=== PATIENT | female | born 1935 | race African-American/Black ===

== ENCOUNTER 2021-10-04 10:35 | Emergency (ER) | payer MEDICARE, SELFPAY ==
--- NOTE | ~2021-10-04 | CT_ITS ---
CT HEAD WITHOUT IV CONTRAST CT CERVICAL SPINE WITHOUT IV CONTRAST INDICATION: Pain. COMPARISON: None available. TECHNIQUE: Multidetector CT acquisitions of the head and cervical spine were obtained without IV contrast. Multiplanar reformats were acquired and utilized for image interpretation. This CT examination was performed using dose optimization techniques as appropriate, variously including the following: *Automated exposure control *Adjustment of mA and/or kV according to patient size (this includes techniques or standardized protocols for targeted exams where dose is matched to indication/reason for exam; i.e. 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 Atherosclerotic calcification throughout the intracranial arterial vasculature. There is no intracranial hemorrhage, hydrocephalus, extra-axial surface collection, midline shift, or other herniation pattern. Her to white matter differentiation is diffusely maintained without evidence of an evolved acute territorial infarct. The basilar cisterns are preserved. No significant soft tissue abnormality. No acute osseous abnormality. There is a retention cyst within the right maxillary sinus. The remaining paranasal sinuses and the mastoid air cells are clear. Degenerative changes involving the left TMJ. CERVICAL SPINE: Straightening the cervical lordosis. Calcified pannus adjacent to the dens. Multilevel endplate osteophytes. Mild anterior subluxation of C3 on C4 and C4 on C5 appears degenerative. There are no acute fractures and there are no acute subluxations. Multilevel hypertrophic facet arthropathy. The craniocervical junction is intact. There is no prevertebral soft tissue swelling. CT/CT head/brain wo con IMPRESSION: - No acute intracranial findings. - No acute osseous findings within the cervical spine. Multilevel cervical spondylosis.
--- NOTE | ~2021-10-04 | CT_ITS ---
CT HEAD WITHOUT IV CONTRAST CT CERVICAL SPINE WITHOUT IV CONTRAST INDICATION: Pain. COMPARISON: None available. TECHNIQUE: Multidetector CT acquisitions of the head and cervical spine were obtained without IV contrast. Multiplanar reformats were acquired and utilized for image interpretation. This CT examination was performed using dose optimization techniques as appropriate, variously including the following: *Automated exposure control *Adjustment of mA and/or kV according to patient size (this includes techniques or standardized protocols for targeted exams where dose is matched to indication/reason for exam; i.e. 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 Atherosclerotic calcification throughout the intracranial arterial vasculature. There is no intracranial hemorrhage, hydrocephalus, extra-axial surface collection, midline shift, or other herniation pattern. Her to white matter differentiation is diffusely maintained without evidence of an evolved acute territorial infarct. The basilar cisterns are preserved. No significant soft tissue abnormality. No acute osseous abnormality. There is a retention cyst within the right maxillary sinus. The remaining paranasal sinuses and the mastoid air cells are clear. Degenerative changes involving the left TMJ. CERVICAL SPINE: Straightening the cervical lordosis. Calcified pannus adjacent to the dens. Multilevel endplate osteophytes. Mild anterior subluxation of C3 on C4 and C4 on C5 appears degenerative. There are no acute fractures and there are no acute subluxations. Multilevel hypertrophic facet arthropathy. The craniocervical junction is intact. There is no prevertebral soft tissue swelling. CT/CT cervical spine wo con IMPRESSION: - No acute intracranial findings. - No acute osseous findings within the cervical spine. Multilevel cervical spondylosis.
[2021-10-04 10:39] VITALS: BP 167/66; PULSE 67; RESP 19; TEMP 36.6; O2SAT 97; BMI 48.6
--- NOTE | 2021-10-04 12:55 | ED.GENADULT ---
HPI - General Adult General Chief complaint: Dizziness Stated complaint: object hit head dizzy and nauseous Time Seen by Provider: 10/04/21 10:59 Source: patient and family (daughter) Mode of arrival: ambulatory Limitations: no limitations History of Present Illness HPI narrative: Patient is a 86 year old female presenting to the emergency department today with a headache, nausea, and dizziness after being hit in the head with a frozen food item 2 days ago. Patient states that she was bending over to get something out of the fridge when a food item fell out of the freezer and hit her in the back of the head. Patient denies any loss of consciousness. Patient denies any vomiting episodes. Patient denies any lightheadedness, abdominal pain, vomiting, fever, chills, blurry vision, double vision, loss of vision, chest pain, difficulty breathing, shortness of breath, back pain, night sweats, pain with urination, increased urinary frequency, increased urinary urgency, blood in her urine or stool, syncope or a near syncopal episode, bowel incontinence, bladder incontinence, bowel retention, bladder retention, or any other complaints at this time. Onset (ago): day(s) (2) Location: head Radiation: non-radiation Severity: mild Severity scale (1-10): 3 Quality: dull Pain Consistency: constant Relieving factors: none Exacerbating factors: none Associated symptoms: nausea/vomiting Treatments prior to arrival: none Related Data Previous Rx's Medication Instructions Recorded ondansetron 4 mg disintegrating 4 mg PO Q8H 3 days #9 tabs 10/04/21 tablet Allergies Allergy/AdvReac Type Severity Reaction Status Date / Time SEASONAL ALLERGIES Allergy Unknown UNK Uncoded 01/09/20 15:49 Review of Systems Constitutional: Constitutional: Reports no additional constitutional complaints, Denies chills, Denies fever(s), Reports headache(s) and Denies night sweats Eyes: Eyes: Reports no additional eye complaints, Denies blurry vision, Denies change in vision, Denies diplopia, Denies eye discharge, Denies loss of vision and Denies eye pain ENT: Reports dizziness and Reports headache(s) Cardiovascular: Cardiovascular: Reports no additional cardiovascular complaints, Denies chest pain, Denies lightheadedness, Denies Loss of Consciousness and Denies dyspnea Respiratory: Respiratory: Reports no additional respiratory complaints and Denies dyspnea Gastrointestinal: Gastrointestinal: Reports no additional gastrointestinal complaints, Denies abdominal pain, Denies melena, Denies hematochezia, Denies change in bowel habits, Denies change in stool character and Reports nausea Genitourinary: Genitourinary: Denies hematuria, Denies urinary frequency, Denies dysuria, Denies urinary incontinence, Denies urinary hesitancy and Denies urinary urgency Musculoskeletal: Musculoskeletal: Reports no additional musculoskeletal complaints, Denies numbness and Denies tingling Neurologic: Reports dizziness, Reports headache(s), Denies loss of vision, Denies numbness and Denies tingling Psychiatric: Psychiatric: Reports no additional psychiatric complaints Endocrine: Endocrine: Reports no additional endocrine complaints Hematologic/Lymphatic: Hematologic/Lymphatic: Reports no additional hematologic/lymphatic complaints Allergic/Immunologic: Allergic/Immunologic: Reports no additional allergic/immunologic complaints [facility] Past Medical History Attestation statement: The following information was validated with the patient. Source: old records reviewed Social History Social History Advance Directives: No Advance Directives Information Provided: No Physical Exam ED Vital Signs: Vital Signs - 24 hr 10/04/21 10:39 Temperature 98 F Pulse Rate 67 Respiratory Rate 19 Blood Pressure 167/66 H Pulse Oximetry 97 Oxygen Delivery Method Room Air BMI result Body Mass Index 48.6 Const General: cooperative, no acute distress, alert and awake Nutritional Appearance: well nourished Orientation/consciousness: patient oriented x3 Limitations: no limitations HENMT Head: Yes normal to inspection and Yes atraumatic Ears: hearing grossly normal bilaterally and external ears normal General nose exam: Normal external nose present, no nasal discharge noted and no epistaxis Face and sinus: Yes normal facial exam, No abrasion and No laceration Mouth: Normal oral and palatal mucosa present, no drooling and no muffled voice Eyes General: appearance normal, both eyes and all related structures Periorbital: periorbital findings normal Eyelids: Yes eyelids normal Conjunctivae: conjunctivae normal Pupils: Equal, round and reactive pupils present EOM: EOMs intact bilaterally Neck Neck: Yes normal visual inspection, Yes full ROM and Yes no lymphadenopathy Chest Chest palpation & inspection: normal inspection of the chest Resp Effort & Inspection: normal respiratory effort and able to speak in complete sentences Auscultation: clear to auscultation bilaterally Cardio Rate: regular rate Rhythm: regular rhythm GI Inspection: Yes normal to inspection Neuro General: patient oriented x3 and moves all extremities Cranial nerves: Yes Equal, round and reactive pupils present Cognition (Neuro): normal cognition Motor exam (neuro): 5/5 motor strength present throughout Sensory Exam: Normal double simultaneous stimulation for sensation Coordination: [id number] test normal Extrem General: Yes normal to inspection, Yes full ROM and Yes capillary refill normal Psych Appearance: grossly normal Mental Status: mental status grossly normal Affect: normal affect Attitude: cooperative Thought process: Normal thought process present Thought content: Normal thought content present Insight: Good insight present (Psych) Medical Decision Making MDM Narrative Medical decision making narrative: Patient is an 86 year old female presenting to the emergency department today with a headache, nausea, and intermittent dizziness. Patient's physical exam was unremarkable. Patient's head and neck CT showed no acute process. I explained my physical exam findings as well as all test results to the patient and the patient's daughter. I answered all questions asked by the patient and the patient's daughter. I stressed the importance of the patient taking her medication as prescribed. I stressed the importance of the patient following up with her primary care provider. I stressed the importance of the patient returning to the emergency department immediately if her symptoms were to worsen or if she were to develop any dizziness, shortness of breath, difficulty breathing, chest pain, blurry vision, loss of vision, nausea, vomiting, abdominal pain, fever, chills, back pain, or any other complaints. Patient and the patient's daughter verbalized agreement and understanding with this treatment plan and discharge. Differential Diagnosis Differential Diagnosis: Headache, concussion Medical Records Medical records reviewed: Yes I reviewed the patient's medical records. Imaging Data Head and C-Spine CT: Attestation: I personally reviewed and interpreted this imaging study as follows: My impression: No acute process. Radiologist's impression: Examination: CT HEAD WITHOUT IV CONTRAST CT CERVICAL SPINE WITHOUT IV CONTRAST INDICATION: Pain. COMPARISON: None available. TECHNIQUE: Multidetector CT acquisitions of the head and cervical spine were obtained without IV contrast. Multiplanar reformats were acquired and utilized for image interpretation. This CT examination was performed using dose optimization techniques as appropriate, variously including the following: *Automated exposure control *Adjustment of mA and/or kV according to patient size (this includes techniques or standardized protocols for targeted exams where dose is matched to indication/reason for exam; i.e. 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 Atherosclerotic calcification throughout the intracranial arterial vasculature. There is no intracranial hemorrhage, hydrocephalus, extra-axial surface collection, midline shift, or other herniation pattern. Her to white matter differentiation is diffusely maintained without evidence of an evolved acute territorial infarct. The basilar cisterns are preserved. No significant soft tissue abnormality. No acute osseous abnormality. There is a retention cyst within the right maxillary sinus. The remaining paranasal sinuses and the mastoid air cells are clear. Degenerative changes involving the left TMJ. CERVICAL SPINE: Straightening the cervical lordosis. Calcified pannus adjacent to the dens. Multilevel endplate osteophytes. Mild anterior subluxation of C3 on C4 and C4 on C5 appears degenerative. There are no acute fractures and there are no acute subluxations. Multilevel hypertrophic facet arthropathy. The craniocervical junction is intact. There is no prevertebral soft tissue swelling. CT/CT head/brain wo con IMPRESSION: - No acute intracranial findings. ? - No acute osseous findings within the cervical spine. Multilevel cervical spondylosis. Dictated By: Angelo Stanley MD Signed By: Electronically signed by Angelo Stanley MD 10/04/21 0597 Discharge Plan Discharge Clinical Impression: Concussion Patient Disposition: Home, Self-Care Instructions: Concussion (ED) Additional Instructions: Follow up with your primary care provider. Return to the emergency department immediately if your symptoms worsen or if you develop any dizziness, shortness of breath, difficulty breathing, chest pain, blurry vision, loss of vision, nausea, vomiting, abdominal pain, fever, chills, back pain, or any other complaints. Prescriptions: New ondansetron 4 mg tablet,disintegrating 4 mg PO Q8H 3 Days Qty: 9 0RF Referrals: Bjorn Luevano MD [Primary Care Provider] - Print Language: Jordanian
[2021-10-04] MEDS: Ondansetron ODT 4 MG TAB.RAPDIS TRANSLINGU (14:02)
[2021-10-04 14:05] VITALS: BP 160/84; PULSE 72; RESP 16; O2SAT 97
--- NOTE | 2021-10-04 14:10 | PC.NURSE ---
patient medicated with zofran prior to discharge . educated on signs and symptoms to monitor after concussion . no questions at this time .
== END 2021-10-04 14:11 | disposition home or self-care (01) ==
PROVIDERS: Emergency Provider Emergency Medicine; PCP Internal Medicine
DX: S06.0X0A Concussion without loss of consciousness, initial encounter (principal); W20.8XXA Other cause of strike by thrown, projected or falling object, initial encounter; Y93.9 Activity, unspecified; Y92.9 Unspecified place or not applicable; Y99.9 Unspecified external cause status
CPT/HCPCS: 70450; 72125; 99284

== ENCOUNTER 2022-01-21 16:09 | Emergency (ER) | payer MEDICARE, OTHER, SELFPAY ==
--- NOTE | ~2022-01-21 | CT_ITS ---
EXAMINATION: CT cervical spine wo IV con, CT head/brain wo IV con INDICATION INFORMATION: Reason for Exam head pain, fall COMPARISON: CT head and cervical spine 10/04/2021 TECHNIQUE: Separate noncontrast CT examinations of the head and cervical spine were performed. Coronal and sagittal images were created for each examination at the technologist workstation. This CT examination was performed using dose optimization techniques as appropriate, variously including the following: *Automated exposure control *Adjustment of mA and/or kV according to patient size (this includes techniques or standardized protocols for targeted exams where dose is matched to indication/reason for exam; i.e. extremities or head) *Use of iterative reconstruction technique DLP: 931 mGy-cm FINDINGS: Head: Midline posterior soft tissue scalp swelling. No underlying calvarial fracture. The mastoid air cells and visualized portions of the paranasal sinuses are well aerated. There is no evidence of acute intracranial hemorrhage or territorial infarction. No abnormal mass effect or midline shift is seen. Her to white matter differentiation is well preserved. No extra-axial fluid collections are identified. No hydrocephalus. Mild patchy periventricular white matter hypoattenuation, nonspecific but commonly related to sequelae of chronic small vessel ischemic change. Chronic right basal ganglia lacunar infarct. Cervical spine: There is no evidence of acute cervical spine fracture. Vertebral bodies remain normal in height. Reversal of the usual cervical spine lordosis. 2 mm anterolisthesis of C4 on C5 favored to be degenerative. Multilevel degenerative disc disease. No pre- or paravertebral soft tissue abnormality is identified. Stable bandlike left apical pleural parenchymal scarring. The thyroid gland is unremarkable. CT/CT cervical spine wo IV con IMPRESSION: 1. No acute intracranial abnormality. Similar chronic microvascular ischemic changes as detailed above. 2. No cervical spine fracture.
[2022-01-21 16:30] VITALS: BP 152/75; PULSE 81; RESP 18; TEMP 37.2; O2SAT 97; BMI 40.7
[2022-01-21 16:46] VITALS: BP 151/78
--- NOTE | 2022-01-21 16:47 | PC.NURSE ---
Pt had a frozen package, not sure of weight hit her in the head from the top freezer section. No headache, dizziness, or lightheadedness. Had a hx of similar event.
--- NOTE | 2022-01-21 16:50 | PC.NURSE ---
Pt is A AND O X 3. Daughter at bedside, aware of plan. Awaiting CT scan of the head and spine.
--- NOTE | 2022-01-21 18:43 | ED.HEATRA ---
HPI - Head Injury General Chief complaint: Head Injury Stated complaint: head injury Time Seen by Provider: 01/21/22 16:32 History of Present Illness HPI Narrative: Patient complains of getting hit in the back of the head by an item that fell from a freezer, she had no loss of consciousness, she was not dazed or confused, no vomiting no vision changes no neck pain no numbness weakness or tingling no other pain or injury, she did not fall to the floor Related Data Previous Rx's Medication Instructions Recorded ondansetron 4 mg disintegrating 4 mg PO Q8H 3 days #9 tabs 10/04/21 tablet Allergies Allergy/AdvReac Type Severity Reaction Status Date / Time SEASONAL ALLERGIES Allergy Unknown UNK Uncoded 01/09/20 15:49 Review of Systems Review of Systems: No dizziness no fainting no feeling faint no loss of consciousness no retrograde amnesia no vision changes no vomiting no confusion no neck pain no numbness weakness or tingling no extremity injuries no back pain Yes all other systems are reviewed and are negative [facility] Past Medical History Source: nursing notes reviewed Social History Social History Advance Directives: No Advance Directives Information Provided: No Physical Exam Vital Signs: Vital Signs: Last Vital Signs Temp 98.9 F 01/21/22 16:30 Pulse 81 01/21/22 16:30 Resp 18 01/21/22 16:30 BP 151/78 H 01/21/22 16:46 Pulse Ox 97 01/21/22 16:30 O2 Del Method 01/21/22 16:30 BMI result Body Mass Index 40.7 Or deformity no laceration Eyes pupils equal round reactive light extraocular motions are intact, there is no Karimi sign no raccoon eyes The neck is supple with no tenderness Respiratory no distress Extremities full range of motion x4 Neuro no focal motor sensory deficits, interaction both comprehension and expression are normal, gait with her walker is normal for her Course Course Course Narrative: Patient remains stable and comfortable with no progression of symptoms, CT results pending CT did not show any evidence of cervical spine injury CT of the head did not show any evidence of intracranial injury Patient has remained stable and comfortable throughout visit and is discharged diagnosis scalp hematoma Discharge Plan Discharge Clinical Impression: Contusion of scalp Patient Disposition: Home, Self-Care Additional Instructions: There is no sign of any dangerous injury, your head CT did not show any evidence of brain injury or bleed, no sign of skull fracture Okay to return to all regular activities Prescriptions: No Action ondansetron 4 mg tablet,disintegrating 4 mg PO Q8H 3 Days Qty: 9 0RF
== END 2022-01-21 19:23 | disposition home or self-care (01) ==
PROVIDERS: Emergency Provider Emergency Medicine; PCP Internal Medicine
DX: S00.03XA Contusion of scalp, initial encounter (principal); S09.90XA Unspecified injury of head, initial encounter; R51.9 Headache, unspecified; M54.2 Cervicalgia; Y29.XXXA Contact with blunt object, undetermined intent, initial encounter; Y93.9 Activity, unspecified; Y92.009 Unspecified place in unspecified non-institutional (private) residence as the place of occurrence of the external cause; Y99.9 Unspecified external cause status; Z79.899 Other long term (current) drug therapy
CPT/HCPCS: 70450; 72125; 99283; 99284

== ENCOUNTER 2022-10-17 13:35 | Outpatient (REF) | payer MEDICARE, OTHER, SELFPAY ==
[2022-10-17 16:37] LABS: Vitamin B12 593 pg/mL (200-900)
== END 2022-10-17 13:36 | disposition home or self-care (01) ==
LOC: HO.LAB 13:35
PROVIDERS: Internal Medicine; Visit Provider Psychiatry & Neurology Neurology
DX: G30.9 Alzheimer's disease, unspecified (principal)
CPT/HCPCS: 36415; 82607

== ENCOUNTER 2023-12-13 10:29 | Emergency (ER) | payer MEDICARE, OTHER, SELFPAY ==
--- NOTE | ~2023-12-13 | CT_ITS ---
EXAMINATION: CT ABDOMEN AND PELVIS WITHOUT CONTRAST CLINICAL INFORMATION: Pain COMPARISON: None available. TECHNIQUE: The patient had originally been scheduled for contrast-enhanced examination however there is infiltration of the IVC. The scan was performed without intravenous contrast. Multidetector volumetric imaging was performed from the superior aspect of the liver through the pubic symphysis. Sagittal and coronal reformatted images were obtained on the technologist's workstation. This CT examination was performed using dose optimization techniques as appropriate, variously including the following: *Automated exposure control *Adjustment of mA and/or kV according to patient size (this includes techniques or standardized protocols for targeted exams where dose is matched to indication/reason for exam; i.e. extremities or head) *Use of iterative reconstruction technique DLP: 861 mGy-cm FINDINGS: LUNG BASES: The visualized lung bases are unremarkable. Coronary artery calcifications and aortic valve calcifications. LIVER, GALLBLADDER, AND BILIARY TREE: The liver is normal in size, shape, and attenuation. No focal hepatic lesion or biliary ductal dilatation is present. Cyst in segment 4 of the liver that does not require follow-up. Cholelithiasis. PANCREAS: Unremarkable. SPLEEN: Unremarkable. ADRENAL GLANDS: Unremarkable. KIDNEYS AND URETERS: There is prominence of the bilateral renal collecting systems, no renal calculi. Kidneys are fairly symmetric in size. No obstructing lesions in the ureters are appreciated on noncontrast imaging. BLADDER: No bladder calculi or bladder wall thickening appreciated. GASTROINTESTINAL TRACT: No high-grade bowel obstruction. ABDOMINAL WALL: No significant hernia is appreciated. LYMPH NODES: No bulky lymphadenopathy. VASCULAR: Extensive atherosclerotic calcification in the abdominal aorta which measures up to 2.7 cm. PELVIC VISCERA: Unremarkable. OSSEOUS STRUCTURES: Bones are demineralized. Degenerative changes of the spine. Moderate amount of high density material within the soft tissues of the left arm consistent with reported IV infiltration following contrast injection. CT/CT abdomen pelvis wo IV con IMPRESSION: 1. No acute abnormality in the abdomen or pelvis. 2. Cholelithiasis. 3. Atherosclerotic disease including coronary artery calcifications. 4. Moderate amount of high density material within the soft tissues of the left arm consistent with reported IV infiltration following contrast injection. Fleischner guidelines were followed. Electronically signed by: David Grant MD 12/13/2023 06:53 PM EDT
[2023-12-13 10:46] VITALS: BP 107/46; PULSE 77; RESP 16; TEMP 36.9; O2SAT 95; BMI 31.1
[2023-12-13 11:07] LABS: MANUAL DIFF FLAG NO
[2023-12-13 11:10] LABS: Basophils Absolute Auto 0.1 X10*3/uL (0.0-0.2); Basophils Percent Auto 0.8 % (0-2); Eosinophils Absolute Auto 0.1 X10*3/uL (0.0-0.4); Eosinophils Percent Auto 0.8 % (0-4); Hematocrit 38.5 % (37.0-47.0); Hemoglobin 13.3 g/dl (12.0-16.0); Imm Gran Abs Auto 0.03 X10*3/uL (0.00-0.03); Imm Gran Pct Auto 0.3 % (0.0-0.4); Lymphocytes Absolute Auto 1.9 X10*3/uL (1.2-4.9); Mean Corpuscular HGB Conc 34.5 g/dl (31.0-35.0); Mean Corpuscular Hemoglobin 26.5 pg (27.0-33.0); Mean Corpuscular Volume 76.7 fL (80.0-98.0); Mean Platelet Volume 10.5 fL (9.4-12.3); Monocytes Absolute Auto 0.5 X10*3/uL (0.1-1.2); Monocytes Percent Auto 5.7 % (2-11); Neutrophils Absolute Auto 6.6 x10*3/uL (2.0-8.3); Neutrophils Percent Auto 71.4 % (45-73); Platelet Count 143 X10*3/uL (160-400); Red Blood Count 5.02 X10*6/uL (4.20-5.50); Red Cell Distribution Width 13.8 % (11.0-16.0); White Blood Count 9.2 X10*3/uL (4.8-10.8)
[2023-12-13 11:21] LABS: Appearance Urine Cloudy; Color Urine Dark Yellow; Glucose Urine UA Negative (Negative); Leukocyte Esterase Urine Large (3+) (Negative); Nitrite Urine Positive (Negative); Specific Gravity - Urine 1.015 (1.005-1.025); UMIC TRIGGER UACC YES; Urine Blood Negative (Negative); Urine Ketones Negative (Negative); Urine Protein Trace mg/dL (Neg-Trace)
[2023-12-13 11:28] LABS: Bacteria Urine 4+ (None Seen); Hyaline Casts Urine 0-2 /LPF (0-2); RBC Urine 0-2 /HPF (0-2); UACC Culture Trigger YES; WBC Clumps Urine Present; WBC Urine >50 /HPF (0-5)
[2023-12-13 16:32] LABS: Alanine Aminotransferase 11 U/L (0-31); Albumin Level 4.3 g/dL (3.5-5.0); Alkaline Phosphatase 55 U/L (39-117); Anion Gap 15 (12-20); Aspartate Amino Transferase 17 U/L (5-31); Bilirubin Direct 0.2 mg/dL (0.0-0.5); Bilirubin Total 0.7 mg/dL (0.0-1.0); Blood Urea Nitrogen 9 mg/dL (9-16); Carbon Dioxide 30 mmol/L (22-29); Chloride 100 mmol/L (96-108); Creatinine Clr Calc Pharmacy 58.8; Estimated Glomerular Filt Rate > 60; Glucose Random 88 mg/dL (60-115); Lipase 27 U/L (8-78); Sodium 142 mmol/L (135-145); Total Protein 7.6 g/dL (6.5-8.0)
[2023-12-13 16:57] VITALS: BP 168/67; PULSE 66; RESP 18; TEMP 36.6; O2SAT 96
[2023-12-13] MEDS: Morphine Sulfate 2 MG/ML CARTRIDGE IVPUSH (17:42)
[2023-12-13] MEDS: ondansetron HCL 4 MG/2 ML VIAL IVPUSH (17:42)
--- NOTE | 2023-12-13 17:59 | ED.ABDPAIN ---
HPI - Abdominal Pain General Chief Complaint: Abdominal Pain Stated Complaint: hip pain Time Seen by Provider: 12/13/23 16:52 Source: patient Limitations: no limitations History of Present Illness ED Provider: Jayne Jones PA-C HPI narrative: 88-year-old female with history of frequent UTIs presents with left hip. Patient's daughters are here at bedside, they indicate that their mother has been complaining of left hip pain with transitioning from sitting to standing. The patient has not sustained a fall, she has not done any new activity; patient walks with a cane at baseline. Patient denies abdominal pain, nausea, vomiting, diarrhea, dysuria or obvious hematuria, no fevers. Related Data Previous Rx's ?Medication ?Instructions ?Recorded ondansetron 4 mg disintegrating 4 mg PO Q8H 3 days #9 tabs 10/04/21 tablet cephalexin 500 mg capsule 500 mg PO Q12H #14 caps 12/13/23 Allergies Allergy/AdvReac Type Severity Reaction Status Date / Time SEASONAL ALLERGIES Allergy Unknown UNK Uncoded 12/13/23 10:52 Review of Systems Review of Systems Yes all other systems are reviewed and are negative Constitutional: Denies fever(s) Cardiovascular: Denies chest pain and Denies dyspnea Respiratory: Denies dyspnea Gastrointestinal: Denies abdominal pain, Denies diarrhea, Denies nausea and Denies vomiting Genitourinary: Denies hematuria and Denies dysuria Musculoskeletal: Reports arthralgias [facility] Past Medical History Attestation statement: The following information was validated with the patient. Social History Social History Smoked in Last 30 Days: No Advance Directives: No Advance Directives Information Provided: No Do you have a plan to hurt others: No Plan Physical Exam ED Vital Signs: Vital Signs - 24 hr 12/13/23 10:46 12/13/23 16:57 12/13/23 18:41 Temperature 98.4 F 97.8 F 97.6 F Pulse Rate 77 66 77 Respiratory Rate 16 18 18 Blood Pressure 107/46 L 168/67 H 151/69 H Pulse Oximetry 95 96 98 Oxygen Delivery Method Room Air Room Air Room Air BMI result Body Mass Index 31.1 Const Other: Alert, well in appearance Orientation/consciousness: patient oriented x3 Resp Other: Nonlabored respiration Cardio Other: Normal peripheral perfusion GI Other: Abdomen is soft, nondistended, mild tenderness left lower quadrant without guarding Back/Spine/Pelvis Other: Palpable pain over left anterolateral and posterior hip, along iliac crest and ilium Skin Other: Warm dry no rash Neuro General: patient oriented x3, no focal motor deficits and CN's II-XI intact bilaterally Psych Other: , cooperative Procedures Procedure Narrative Procedure Narrative: Ultrasound-guided IV Nursing unable to obtain, needs medication and CT scan 18 gauge 1-3/4 inch catheter placed in the left upper arm Flushes well, adequate returned, secured Course Reevaluation(s) Reevaluation #1: Patient is ultrasound-guided IV infiltrated at CT scan, we removed it, she received her medication prior to infiltration at CT Reevaluation #2: Patient found to have UTI, given Keflex Medical Decision Making Medical Decision Making MDM Narrative: 88-year-old female with history of frequent UTIs presents with left hip. Patient's daughters are here at bedside, they indicate that their mother has been complaining of left hip pain with transitioning from sitting to standing. The patient has not sustained a fall, she has not done any new activity; patient walks with a cane at baseline. Patient denies abdominal pain, nausea, vomiting, diarrhea, dysuria or obvious hematuria, no fevers. Problem: Age, frequent UTIs, gait instability History: Per patient and her daughters I have considered the following differential diagnoses: Fracture, dislocation, UTI, renal colic, diverticulitis, arthritis Plan: Despite the fact that the patient denied abdominal pain, I am eliciting focal left lower quadrant pain on my exam. Could be referred pain from her hip pain. Unclear. Obtaining a CT scan. Screening labs including urinalysis are collected, in process. Could be UTI, she was frequent UTIs, although she does deny dysuria. Thought about renal colic, however this is not flank pain this is pain over the hip itself. She has not sustained a traumatic injury, however the CT scan we will assess for acute injury, I think she likely has arthritis. We will give low-dose morphine for her pain and 500 mL of IV fluid. I am ordering Zofran as well in the event she becomes nauseous with the morphine. I have independently reviewed the following tests: Labs: No leukocytosis, not anemic, potassium subtly low at 3.0, urine infected. We will be giving 40 mEq of oral potassium and cephalexin. CT abdomen and pelvis:[address] [address] [address] Scan Report Signed Patient: Mallory Wilson MR#: [id number] : 1935 Acct:[id number] Age/Sex: 88 / F ADM Date: 12/13/23 Loc: HO.ED Attending Dr: Ordering Physician: Jayne Jones Date of Service: 12/13/23 Procedure(s): CT abdomen pelvis wo IV con Accession Number(s): [id number] cc: Jayne Jones; Physician,Unknown ~ EXAMINATION: CT ABDOMEN AND PELVIS WITHOUT CONTRAST CLINICAL INFORMATION: Pain COMPARISON: None available. TECHNIQUE: The patient had originally been scheduled for contrast-enhanced examination however there is infiltration of the IVC. The scan was performed without intravenous contrast. Multidetector volumetric imaging was performed from the superior aspect of the liver through the pubic symphysis. Sagittal and coronal reformatted images were obtained on the technologist's workstation. This CT examination was performed using dose optimization techniques as appropriate, variously including the following: *Automated exposure control *Adjustment of mA and/or kV according to patient size (this includes techniques or standardized protocols for targeted exams where dose is matched to indication/reason for exam; i.e. extremities or head) *Use of iterative reconstruction technique DLP: 861 mGy-cm FINDINGS: LUNG BASES: The visualized lung bases are unremarkable. Coronary artery calcifications and aortic valve calcifications. LIVER, GALLBLADDER, AND BILIARY TREE: The liver is normal in size, shape, and attenuation. No focal hepatic lesion or biliary ductal dilatation is present. Cyst in segment 4 of the liver that does not require follow-up. Cholelithiasis. PANCREAS: Unremarkable. SPLEEN: Unremarkable. ADRENAL GLANDS: Unremarkable. KIDNEYS AND URETERS: There is prominence of the bilateral renal collecting systems, no renal calculi. Kidneys are fairly symmetric in size. No obstructing lesions in the ureters are appreciated on noncontrast imaging. BLADDER: No bladder calculi or bladder wall thickening appreciated. GASTROINTESTINAL TRACT: No high-grade bowel obstruction. ABDOMINAL WALL: No significant hernia is appreciated. LYMPH NODES: No bulky lymphadenopathy. VASCULAR: Extensive atherosclerotic calcification in the abdominal aorta which measures up to 2.7 cm. PELVIC VISCERA: Unremarkable. OSSEOUS STRUCTURES: Bones are demineralized. Degenerative changes of the spine. Moderate amount of high density material within the soft tissues of the left arm consistent with reported IV infiltration following contrast injection. CT/CT abdomen pelvis wo IV con IMPRESSION: 1. No acute abnormality in the abdomen or pelvis. 2. Cholelithiasis. 3. Atherosclerotic disease including coronary artery calcifications. 4. Moderate amount of high density material within the soft tissues of the left arm consistent with reported IV infiltration following contrast injection. Fleischner guidelines were followed. Differential Diagnosis Differential Diagnoses: The differential diagnosis associated with the presentation includes Lab Data 12/13/23 11:02 12/13/23 15:59 Labs: Lab Results 12/13/23 12/13/23 12/13/23 Range/Units 11:02 11:14 15:59 WBC 9.2 (4.8-10.8) X10*3/uL RBC 5.02 (4.20-5.50) X10*6/uL Hgb 13.3 (12.0-16.0) g/dl Hct 38.5 (37.0-47.0) % MCV 76.7 L (80.0-98.0) fL MCH 26.5 L (27.0-33.0) pg MCHC 34.5 (31.0-35.0) g/dl RDW 13.8 (11.0-16.0) % Plt Count 143 L (160-400) X10*3/uL MPV 10.5 (9.4-12.3) fL Immature Gran % (Auto) 0.3 (0.0-0.4) % Neut % (Auto) 71.4 (45-73) % Lymph % (Auto) 21.0 (20-40) % [place] % (Auto) 5.7 (2-11) % Eos % (Auto) 0.8 (0-4) % Baso % (Auto) 0.8 (0-2) % Lymph # (Auto) 1.9 (1.2-4.9) X10*3/uL [place] # (Auto) 0.5 (0.1-1.2) X10*3/uL Eos # (Auto) 0.1 (0.0-0.4) X10*3/uL Baso # (Auto) 0.1 (0.0-0.2) X10*3/uL Abs Immat Gran (auto) 0.03 (0.00-0.03) X10*3/uL Absolute Neuts (auto) 6.6 (2.0-8.3) x10*3/uL Absolute Nucleated RBC 0.000 (0.0-0.012) X10*3/uL Nucleated RBC % (auto) 0.0 (0.0-0.2) /100WBC Sodium 142 (135-145) mmol/L Potassium 3.0 L (3.3-5.1) mmol/L Chloride 100 (96-108) mmol/L Carbon Dioxide 30 H (22-29) mmol/L Anion Gap 15 (12-20) BUN 9 (9-16) mg/dL Creatinine 0.66 (0.5-1.4) mg/dL Estim Creat Clear Calc 58.8 Estimated GFR > 60 Random Glucose 88 (60-115) mg/dL Calcium 10.0 (8.4-10.2) mg/dL Total Bilirubin 0.7 (0.0-1.0) mg/dL Direct Bilirubin 0.2 (0.0-0.5) mg/dL AST 17 (5-31) U/L ALT 11 (0-31) U/L Alkaline Phosphatase 55 (39-117) U/L Total Protein 7.6 (6.5-8.0) g/dL Albumin 4.3 (3.5-5.0) g/dL Lipase 27 (8-78) U/L Urine Color Dark Yellow Urine Appearance Cloudy Urine pH 6.0 (5.0-9.0) Ur Specific [place] 1.015 (1.005-1.025) Urine Protein Trace (Neg-Trace) mg/dL Urine Glucose (UA) Negative (Negative) mg/dL Urine Ketones Negative (Negative) mg/dL Urine Blood Negative (Negative) Urine Nitrite Positive H (Negative) Ur Leukocyte Esterase Large (3+) H (Negative) Urine RBC 0-2 (0-2) /HPF Urine WBC >50 H (0-5) /HPF Urine WBC Clumps Present Ur Squamous Epith Cells 6-10 (0-2) /HPF Urine Bacteria 4+ (None Seen) Hyaline Casts 0-2 (0-2) /LPF Medications Administered Discontinued Medications Generic Name Dose Route Start Last Admin Trade Name Cristiane PRN Reason Stop Dose Admin Cephalexin HCl 500 mg 12/13/23 17:59 12/13/23 18:37 Cephalexin 500 Mg Capsule PO 12/13/23 18:00 500 mg ONCE ONE Administration Morphine Sulfate 2 mg 12/13/23 17:06 12/13/23 17:42 Morphine Sulfate 2 Mg/Ml Cartridge IVPUSH 12/13/23 17:07 2 mg ONCE ONE Administration Protocol Ondansetron HCl 4 mg 12/13/23 16:55 12/13/23 17:42 Ondansetron Hcl 4 Mg/2 Ml Vial IVPUSH 12/13/23 16:56 4 mg ONCE ONE Administration Potassium Chloride 40 meq 12/13/23 17:06 12/13/23 18:37 Potassium Chloride Packet 20 Meq Packet PO 12/13/23 17:07 40 meq ONCE ONE Administration Discharge Plan Discharge Clinical Impression: Acute UTI, Osteoarthritis Patient Disposition: Home, Self-Care Instructions: Osteoarthritis (ED), Urinary Tract Infection in Older Adults (ED) Additional Instructions: The CT scan of the abdomen was essentially negative, you were shown to have some arthritic changes which was expected. You were also found to have a urinary tract infection. See home care instructions. Take the cephalexin as directed. For your arthritis pain, she can use Tylenol 1000 mg every 8 hours. Follow up with your primary care provider within a week. Prescriptions: New cephalexin 500 mg capsule 500 mg PO Q12H Qty: 14 0RF No Action ondansetron 4 mg tablet,disintegrating 4 mg PO Q8H 3 Days Qty: 9 0RF Print Language: Bulgarian
--- NOTE | 2023-12-13 18:28 | PC.NURSE ---
Pt enters my care- pt c/o r sided pain with dysuria. VSS Daughters at bedside- informed of the care plan. IV initiated by provider-
[2023-12-13] MEDS: Potassium Chloride Packet 20 MEQ PACKET 40 MEQ PO (18:37)
[2023-12-13] MEDS: cephALEXin 500 MG CAPSULE PO (18:37)
[2023-12-13 18:41] VITALS: BP 151/69; PULSE 77; RESP 18; TEMP 36.4; O2SAT 98
[2023-12-13 19:51] VITALS: BP 148/81; PULSE 86; RESP 18; TEMP 36.4; O2SAT 98
== END 2023-12-13 19:56 | disposition home or self-care (01) ==
PROVIDERS: Emergency Provider Emergency Medicine
DX: M16.12 Unilateral primary osteoarthritis, left hip (principal); N39.0 Urinary tract infection, site not specified; M25.552 Pain in left hip; R26.89 Other abnormalities of gait and mobility
CPT/HCPCS: 36415; 74176; 80053; 81001; 82248; 83690; 85025; 87086; 96374; 96375; 99284; J2270; J2405

== ENCOUNTER 2023-12-19 11:47 | Emergency (ER) | payer MEDICARE, OTHER, SELFPAY ==
--- NOTE | ~2023-12-19 | XR_ITS ---
EXAMINATION: XR RIBS, LEFT CLINICAL INFORMATION: Pain left side. COMPARISON: None available. TECHNIQUE: Frontal view of chest 3 views of the left ribs were obtained. FINDINGS: Lungs are clear. No pulmonary vascular congestion. There is no pleural effusion. The heart size is normal. The cardiac and mediastinal contours are normal. There are calcifications of the thoracic aorta. There are multilevel degenerative changes of dorsal spine. 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 The humeral head impacts the inferior surface of both the right and left shoulder. No acute osseous abnormality. Ribs are intact. No fractures are identified. XR/XR ribs LT min 3V w CXR1V IMPRESSION: 1. No acute abnormality of chest. 2. No acute osseous abnormality. 3. 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 Electronically signed by: Vishal De La Vega MD 12/19/2023 04:12 PM EDT
--- NOTE | 2023-12-19 12:06 | ED_ITS ---
HPI - General Adult General Chief complaint: Abdominal Pain Stated complaint: UTI Time Seen by Provider: 12/19/23 14:45 Source: patient, RN notes reviewed and old records reviewed Mode of arrival: ambulatory History of Present Illness ED Provider: Ruby Avelar PA-C [facility] narrative: 88-year-old female with a past medical history of UTI diagnosed in our facility 6 days ago, currently on Keflex, presenting to ED complaining of continued left side/flank pain radiating to abdomen x1 week. Patient was evaluated in our ED on 12/13/23 for similar symptoms, states pain has been constant since that evaluation, not improved or worsening. Reports compliance with antibiotics, last day tomorrow. Pain worse with movement and palpation. Denies fever, chills, nausea/vomiting, dysuria/hematuria, frequency Related Data Previous Rx's ?Medication ?Instructions ?Recorded ondansetron 4 mg disintegrating 4 mg PO Q8H 3 days #9 tabs 10/04/21 tablet cephalexin 500 mg capsule 500 mg PO Q12H #14 caps 12/13/23 Allergies Allergy/AdvReac Type Severity Reaction Status Date / Time SEASONAL ALLERGIES Allergy Unknown UNK Uncoded 12/19/23 12:10 Review of Systems 2 Review of Systems: Constitutional: No Fever, No Chills ENT/Mouth: No Ear Pain, No Nasal Congestion, No sore throat, No Rhinorrhea, No Swallowing Difficulty Cardiovascular: No Chest Pain, No SOB Respiratory: No Cough, No Sputum Gastrointestinal: No Nausea, No Vomiting, No Diarrhea, No Constipation, + Abdominal pain Genitourinary: No Dysuria, No Urinary Frequency, No Hematuria, No Urinary Incontinence/retention, + Flank Pain Musculoskeletal: No joint pain, No Myalgias Skin: No Skin Lesions, No rash Neuro: No Weakness, No Numbness, No Paresthesias Yes all other systems are reviewed and are negative Constitutional: Constitutional: Reports as per [facility] Past Medical History Attestation statement: The following information was validated with the patient. Source: old records reviewed Social History Social History Smoked in Last 30 Days: No Use of substances other than those prescribed or required for medical reasons: No Advance Directives: Yes Advance Directives Information Provided: Yes Advance Directives on File: No Do you have a plan to hurt others: No Plan Physical Exam ED Vital Signs: Vital Signs - 24 hr 12/19/23 12:08 12/19/23 17:24 Temperature 98.5 F 97.9 F Pulse Rate 79 70 Respiratory Rate 18 16 Blood Pressure 122/63 174/79 H Pulse Oximetry 97 98 Oxygen Delivery Method Room Air Room Air BMI result Body Mass Index 30.5 Const General: cooperative, healthy appearing and no acute distress Orientation/consciousness: patient oriented x3 Limitations: no limitations HENMT Head: Yes normal to inspection and Yes atraumatic Ears: hearing grossly normal bilaterally General nose exam: Normal external nose present Face and sinus: Yes normal facial exam Eyes General: appearance normal, both eyes and all related structures EOM: EOMs intact bilaterally Neck Neck: Yes normal visual inspection and Yes no meningeal signs Resp Effort & Inspection: normal respiratory effort and no respiratory distress Cardio Rate: regular rate Heart sounds: S1 normal heart sound present and S2 normal heart sound present GI Inspection: Yes normal to inspection Palpation (GI): Soft to palpation, nontender, no guarding and not rigid Other: + dry skin noted to left flank. No rash. No sloughing, erythema or ecchymosis.+ left flank tenderness to palpation. No flail chest. General: Yes CVA tenderness on the left Back/Spine/Pelvis Back: CVA tenderness Skin Rashes: no rashes Wounds: no wounds Neuro Other: Strength intact throughout. No saddle anesthesia. Sensation intact to light touch. Neurovascular intact distally General: patient oriented x3, tone normal and no meningeal signs Cranial nerves: Yes CN's II-XII intact bilaterally Gait exam (Neuro): Normal gait present Extrem General: Yes normal to inspection Course Course Course Narrative: This is an RME done by [facility] Mai: Additional HPI, ROS, PE not included below will be deferred to primary provider. 88 year old female presenting with concerns of left-sided flank pain (01/31). Pt was here last week with similar concerns and was diagnosed with UTI, but symptoms did not resolve and medications are now running out. Denies fevers, chills, hematuria, urinary frequency/burning. Plan- urine Appearance: Alert.? Oriented X3.? No acute distress.?Presenting in wheelchair. Head: Normocephalic, atraumatic, no step-offs or deformities Neck: Normal inspection.? Neck supple.? CVS: Normal heart rate and rhythm.? Pulses normal.? Respiratory: No respiratory distress.? Breath sounds normal.? Abdomen: Soft and nontender.? Skin: Skin warm and dry.? Normal skin color.? Normal skin turgor.? Extremities: No lower extremity edema.? No calf ttp. 5/5 strength to bilateral upper and lower extremities Back: No midline tenderness, no C-spine tenderness, full range of motion, no CVA tenderness bilaterally Neuro: Oriented X 3.? No motor deficit.? No sensory deficit. CN 2-12 intact -UA noninfected XR ribs LT min 3V w CXR1V IMPRESSION: 1. No acute abnormality of chest. 2. No acute osseous abnormality. 3. 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 -1630--ED care transferred to [facility] pending remaining labs and anticipated dispo Reevaluation(s) Reevaluation #1: Chemistries without electrolyte derangement, MISAEL, LFT abnormality. Urinalysis not consistent with infection. Stable for discharge home. Medications Administered Discontinued Medications Generic Name Dose Route Start Last Admin Trade Name Freq PRN Reason Stop Dose Admin Cyclobenzaprine HCl 10 mg 12/19/23 15:34 12/19/23 15:43 Cyclobenzaprine Hcl 10 Mg Tablet PO 12/19/23 15:35 10 mg ONCE ONE Administration Lidocaine 1 patch 12/19/23 15:34 12/19/23 15:42 Lidocaine 4 % Patch Adh..Patch TRANSDERMA 12/19/23 15:35 1 patch ONCE ONE Administration Protocol Medical Decision Making Medical Decision Making MDM Narrative: 88-year-old female with a past medical history of UTI diagnosed in our facility 6 days ago, currently on Keflex, presenting to ED complaining of continued left side/flank pain radiating to abdomen x1 week. On exam vital signs stable, NAD, nontoxic appearing, pain elicited on position changes and palpation. No rash or evidence of trauma. Abdomen soft and nontender. Concern for persistent UTI vs pyelo vs renal stone vs MSK pain/sciatica vs strain. Lower suspicion for fracture, cauda equina/cord compression or appendicitis/diverticulitis. Reviewed labs and imaging from 12/13/2023, appreciable UTI, CT without acute findings Plan: Repeat labs and UA. CXR. No need for repeat CT at this time as pain is unchanged Please refer to course for remaining clinical decision making, interpretation of labs/imaging results, and discussions with consultants and/or family members. Differential Diagnosis Differential Diagnoses: The differential diagnosis associated with the presentation includes As above Admission/Observation Consideration of admission/observation: Escalation of care including admission/observation considered Lab Data MDM Lab Attestation statement: I reviewed the patient's lab results. 12/19/23 16:12 12/19/23 16:12 Labs: Lab Results 12/19/23 12/19/23 Range/Units 13:17 16:12 WBC 6.4 (4.8-10.8) X10*3/uL RBC 5.39 (4.20-5.50) X10*6/uL Hgb 14.2 (12.0-16.0) g/dl Hct 41.4 (37.0-47.0) % MCV 76.8 L (80.0-98.0) fL MCH 26.3 L (27.0-33.0) pg MCHC 34.3 (31.0-35.0) g/dl RDW 13.5 (11.0-16.0) % Plt Count 142 L (160-400) X10*3/uL MPV 10.6 (9.4-12.3) fL Immature Gran % (Auto) 0.2 (0.0-0.4) % Neut % (Auto) 41.0 L (45-73) % Lymph % (Auto) 50.8 H (20-40) % [place] % (Auto) 4.9 (2-11) % Eos % (Auto) 2.0 (0-4) % Baso % (Auto) 1.1 (0-2) % Lymph # (Auto) 3.2 (1.2-4.9) X10*3/uL [place] # (Auto) 0.3 (0.1-1.2) X10*3/uL Eos # (Auto) 0.1 (0.0-0.4) X10*3/uL Baso # (Auto) 0.1 (0.0-0.2) X10*3/uL Abs Immat Gran (auto) 0.01 (0.00-0.03) X10*3/uL Absolute Neuts (auto) 2.6 (2.0-8.3) x10*3/uL Absolute Nucleated RBC 0.000 (0.0-0.012) X10*3/uL Nucleated RBC % (auto) 0.0 (0.0-0.2) /100WBC Sodium 140 (135-145) mmol/L Potassium 4.1 D (3.3-5.1) mmol/L Chloride 101 (96-108) mmol/L Carbon Dioxide 27 (22-29) mmol/L Anion Gap 16 (12-20) BUN 9 (9-16) mg/dL Creatinine 0.70 (0.5-1.4) mg/dL Estim Creat Clear Calc 55.3 Estimated GFR > 60 Random Glucose 90 (60-115) mg/dL Calcium 10.2 (8.4-10.2) mg/dL Total Bilirubin 0.5 (0.0-1.0) mg/dL Direct Bilirubin 0.1 (0.0-0.5) mg/dL AST 20 (5-31) U/L ALT 10 (0-31) U/L Alkaline Phosphatase 53 (39-117) U/L Total Protein 7.8 (6.5-8.0) g/dL Albumin 4.3 (3.5-5.0) g/dL Urine Color Yellow Urine Appearance Clear Urine pH 7.0 (5.0-9.0) Ur Specific [place] <= 1.005 (1.005-1.025) Urine Protein Negative (Neg-Trace) mg/dL Urine Glucose (UA) Negative (Negative) mg/dL Urine Ketones Negative (Negative) mg/dL Urine Blood Negative (Negative) Urine Nitrite Negative (Negative) Ur Leukocyte Esterase Negative (Negative) Independent Interpretation I performed an independent interpretation of an: Plain X-Ray Radiology Impression Discussion of test interpretation with radiology: I have reviewed the radiologist's reading. External Record Review External record reviewed: Inpatient record, Office record, Outpatient record, Prior outpatient labs, Prior outpatient radiology, Primary care record and Outside ED record Tests considered The following testing was considered but not selected: As above Prescription Management I considered prescription management with: Pain Medication Chronic Conditions Patient?s care impacted by: Other Discharge Plan Discharge Clinical Impression: Left flank pain Patient Disposition: Home, Self-Care Instructions: Flank Pain (ED) Additional Instructions: Your urine is not infected. Her x-ray is unremarkable Continue taking previously prescribed antibiotics You need to have close follow-up with her doctor If symptoms persist or worsen return to emergency department Prescriptions: No Action ondansetron 4 mg tablet,disintegrating 4 mg PO Q8H 3 Days Qty: 9 0RF cephalexin 500 mg capsule 500 mg PO Q12H Qty: 14 0RF Referrals: Bjorn Luevano MD [Primary Care Provider] - 2 days Interventions: ED Discharge Assessment Last Done: 12/19/23 17:24 Discharge Date/Time: 12/19/23 17:26 Print Language: Welsh
[2023-12-19 12:08] VITALS: BP 122/63; PULSE 79; RESP 18; TEMP 36.9; O2SAT 97; BMI 30.5
[2023-12-19 13:26] LABS: Appearance Urine Clear; Color Urine Yellow; Glucose Urine UA Negative (Negative); Leukocyte Esterase Urine Negative (Negative); Nitrite Urine Negative (Negative); Specific Gravity - Urine <= 1.005 (1.005-1.025); Urine Blood Negative (Negative); Urine Ketones Negative (Negative); Urine Protein Negative (Neg-Trace)
[2023-12-19] MEDS: Lidocaine 4 % Patch ADH..PATCH 1 PATCH TRANSDERMA (15:42)
[2023-12-19] MEDS: Cyclobenzaprine HCl 10 MG TABLET PO (15:43)
[2023-12-19 16:16] LABS: MANUAL DIFF FLAG NO
[2023-12-19 16:17] LABS: Basophils Absolute Auto 0.1 X10*3/uL (0.0-0.2); Basophils Percent Auto 1.1 % (0-2); Eosinophils Absolute Auto 0.1 X10*3/uL (0.0-0.4); Hematocrit 41.4 % (37.0-47.0); Hemoglobin 14.2 g/dl (12.0-16.0); Imm Gran Abs Auto 0.01 X10*3/uL (0.00-0.03); Imm Gran Pct Auto 0.2 % (0.0-0.4); Lymphocytes Absolute Auto 3.2 X10*3/uL (1.2-4.9); Lymphocytes Percent Auto 50.8 % (20-40); Mean Corpuscular HGB Conc 34.3 g/dl (31.0-35.0); Mean Corpuscular Hemoglobin 26.3 pg (27.0-33.0); Mean Corpuscular Volume 76.8 fL (80.0-98.0); Mean Platelet Volume 10.6 fL (9.4-12.3); Monocytes Absolute Auto 0.3 X10*3/uL (0.1-1.2); Monocytes Percent Auto 4.9 % (2-11); Neutrophils Absolute Auto 2.6 x10*3/uL (2.0-8.3); Platelet Count 142 X10*3/uL (160-400); Red Blood Count 5.39 X10*6/uL (4.20-5.50); Red Cell Distribution Width 13.5 % (11.0-16.0); White Blood Count 6.4 X10*3/uL (4.8-10.8)
[2023-12-19 16:39] LABS: Alanine Aminotransferase 10 U/L (0-31); Albumin Level 4.3 g/dL (3.5-5.0); Alkaline Phosphatase 53 U/L (39-117); Anion Gap 16 (12-20); Aspartate Amino Transferase 20 U/L (5-31); Bilirubin Direct 0.1 mg/dL (0.0-0.5); Bilirubin Total 0.5 mg/dL (0.0-1.0); Blood Urea Nitrogen 9 mg/dL (9-16); Calcium 10.2 mg/dL (8.4-10.2); Carbon Dioxide 27 mmol/L (22-29); Chloride 101 mmol/L (96-108); Creatinine Clr Calc Pharmacy 55.3; Estimated Glomerular Filt Rate > 60; Glucose Random 90 mg/dL (60-115); Potassium 4.1 mmol/L (3.3-5.1); Sodium 140 mmol/L (135-145); Total Protein 7.8 g/dL (6.5-8.0)
[2023-12-19 17:24] VITALS: BP 174/79; PULSE 70; RESP 16; TEMP 36.6; O2SAT 98
== END 2023-12-19 17:26 | disposition home or self-care (01) ==
PROVIDERS: Physician Assistant; Emergency Provider Emergency Medicine Emergency Medical Services; PCP Internal Medicine
DX: N39.0 Urinary tract infection, site not specified (principal); R07.81 Pleurodynia; R10.9 Unspecified abdominal pain; Z79.899 Other long term (current) drug therapy
CPT/HCPCS: 36415; 71101; 80048; 80076; 81003; 85025; 99283; 99284

== ENCOUNTER 2025-01-02 08:19 | Outpatient (AMB) | payer MEDICARE, OTHER, SELFPAY ==
--- OUTSIDE RECORDS SUMMARY | 2024-07-08 04:00 | XMS_ITS ---
Author Organization [facility] Address [address] [place] [address] Care Team Providers Care Floor Covering Installer Name Role Phone Chloé NEAL, Bjorn Byers Primary Care Provider Unav ailable Trupti Silva Unavailable [phone] Lind Encounters Encounter Location Date Provider Diagnosis [facility] [address] [place] [address] 07/08/2024 Trupti Ricardo Plan Of Treatment Next Appt Details Provider Name:Trupti Silva , 04/10/2025 11:00:00 AM, [address] [place], [address], Progress Notes * Mallory WILSON BDOB:[birth year] (89 yo F)Acc No.[id number]:07/08/2024 Progress Note Patient: Archie MENDOZA Mallory Hernandez Provider: France Silva DPM :1935 A ge:89 Y S ex:Female Date:07/08/2024 [facility] [facility] [place] Pcp:Bjorn Luevano MD Subjective: * Chief Complaints: * [address] Lind[address] * Medical History: Objective: * Vitals: Assessment: Plan: * Treatment: * Images: * The named appointment provid er may or may not be the originator of this progress note, and it is not deemed complete until electronically signed by the appointment provider. Sign off status: Pending * Provider: France Silva DPM Date: 0 07/08/2024 Generated for Shazia mendoza/Krystle/Debo on: 0 01/02/2025 09:17 AM EDT
--- OUTSIDE RECORDS SUMMARY | 2024-07-15 04:00 | XMS_ITS ---
Author Organization [facility] Address [address] [place] [address] Care Team Providers Care Brassiere Cup Mold Cutter Name Role Phone Chloé NEAL, Bjorn Byers Primary Care Provider Unav ailable RicardoTrupti Unavailable [phone] CANCINO Encounters Encounter Location Date Provider Diagnosis [address] [address] 07/15/2024 Trupti Ricardo Plan Of Treatment Next Appt Details Provider Name:Trupti Silva , 04/10/2025 11:00:00 AM, [address] [place], [address], Progress Notes * Mallory WILSON BDOB:[birth year] (89 yo F)Acc No.[id number]:07/15/2024 Progress Note Patient: Archie MENDOZA Mallory Hernandez Provider: France Silva DPM :1935 A ge:89 Y S ex:Female Date:07/15/2024 [place] [facility] Pcp:Bjorn Luevano MD Subjective: * Chief Complaints: * [address] CANCINO. * Medical History: Objective: * Vitals: Assessment: Plan: * Treatment: * Images: * The named appointment provid er may or may not be the originator of this progress note, and it is not deemed complete until electronically signed by the appointment provider. Sign off status: Pending * Provider: France Silva DPM Date: 0 07/15/2024 Generated for Shazia Martinez/Debo on: 0 01/02/2025 09:18 AM EDT
--- OUTSIDE RECORDS SUMMARY | 2024-08-08 09:45 | XMS_ITS ---
Author Organization [facility] Address [address] [place] [address] Care Team Providers Care Director Of Pediatric Rehabilitation Name Role Phone Chloé NEAL, Bjorn Byers Primary Care Provider Unav ailable RicardoRobertoTrupti Unavailable [phone] Encounters Encounter Location Date Provider Diagnosis [facility] [address] [place] [address] 08/08/2024 Trupti Silva Plan Of Treatment Next Appt Details Provider Name:Trupti Silva , 04/10/2025 11:00:00 AM, [address] [place], [address], Progress Notes * Mallory WILSON BDOB:[birth year] (89 yo F)Acc No.[id number]:08/08/2024 Progress Note Patient: Nancy MURPHYecca Mary Provider: France Silva DPM :1935 A ge:89 Y S ex:Female Date:08/08/2024 Address:[address] [place] Pcp:Bjorn Luevano MD Subjective: * Chief Complaints: * * Medical History: Objective: * Vitals: Assessment: Plan: * Treatment: * Images: * The named appointment provid er may or may not be the originator of this progress note, and it is not deemed complete until electronically signed by the appointment provider. Sign off status: Pending * Provider: France Silva DPM Date: 0 08/08/2024 Generated for Shazia mendoza/Krystle/Debo on: 0 01/02/2025 09:18 AM EDT
--- NOTE | 2025-01-02 08:55 | MHC.OFFVIS ---
Intake Visit Reasons: 6m Accompanied by: Daughter Allergies SEASONAL ALLERGIES Allergy (Unknown, Uncoded 01/02/25 08:58) UNK Medication List - Last Reconciled 01/02/25 by Brigette Busch CNP cephalexin 500 mg PO Q12H donepezil 10 mg PO DAILY hydrochlorothiazide 12.5 mg PO QAM metformin 1,000 mg PO BID ondansetron 4 mg PO Q8H 3 days potassium chloride ER 20 mEq PO DAILY rosuvastatin 5 mg PO DAILY HPI Comments Details: 89-year-old woman with dementia. She was doing okay. She was living with family. Memory was getting a little slow. She was walking with a cane, no falls.?Mood was okay. Sleep was not so good. [facility] Medical History (Updated 01/02/25 @ 08:57 by Brigette Busch CNP) Multifactorial gait disorder Osteoarthritis Obesity Alzheimer disease Review of Systems Const Denies chills, Denies daytime sleepiness, Reports difficulty sleeping, Denies fatigue, Denies fever(s), Denies frequent falls, Denies headache(s), Denies increased appetite, Denies poor appetite, Denies snoring, Denies weakness, Denies weight gain and Denies weight loss Eyes Denies loss of vision ENT Denies vertigo, Denies dizziness and Denies headache(s) Card Denies chest pain at rest, Denies chest pain with activity, Denies syncope, Denies leg edema and Denies palpitations Resp Denies snoring GI Denies constipation, Denies heartburn, Denies diarrhea and Denies nausea Denies urinary frequency, Denies urinary incontinence and Denies urinary urgency Musc Denies abnormal gait, Denies numbness and Denies tingling Skin/Breast Denies dry skin and Denies rash Neuro Denies abnormal gait, Denies vertigo, Denies dizziness, Denies syncope, Denies frequent falls, Denies headache(s), Denies lack of coordination, Denies loss of vision, Reports memory loss, Denies numbness, Denies restless legs, Denies seizure-like activity, Denies tingling, Denies paresthesias, Denies tremor(s) and Denies weakness Psych Denies anxiety, Denies depression, Denies auditory hallucinations, Reports memory loss, Denies visual hallucinations and Denies suicidal ideation Endo Denies fatigue and Denies palpitations Physical Exam Const Other: General Appearance:? normal, in no acute distress. Skin:? no rashes, no significant birthmarks. Heart:? S1, S2 normal, no murmurs. Lungs:? clear anteriorly and posteriorly. Extremities:? no edema. Psych:? alert, cooperative with exam. Neuro Other: Mental Status:?Normal attention and affect.?She was able to tell me the month, year, and her age. Cranial Nerves:?Pupils are equal, round and reactive to light. External occular muscles are intact. Visual valencia are full. Face is symmetrical. Facial sensations are normal. Tongue is midline. Palate elevates symmetrically. Shoulder shrugging is normal. Hearing to bedside conversation is normal. Sensory Exam:?....? Coordination:?No ataxia,?no titubation.? Gait Exam: Slow and cautious with cane. Cerebellar Signs:?Fusuax-si-cbda is okay. Extrapyramidal System:?No tremor, rigidity with normal facial expressions.? Pronator Drift:?Not present.? Involuntary Movements:?No tremors seen.? Speech:?Normal.? Results Reviewed Results Reviewed: [place] brain [place] [facility] [place]: Mild to mod diff atrophy, mild MVD Assessment & Plan Assessment & Plan (1) Alzheimer disease: Code(s): G30.9 - Alzheimer's disease, unspecified; F02.80 - Dementia in other diseases classified elsewhere, unspecified severity, without behavioral disturbance, psychotic disturbance, mood disturbance, and anxiety Category: Medical Plan: Continue donepezil 10mg 1 tablet at bedtime. (2) Multifactorial gait disorder: Code(s): R26.89 - Other abnormalities of gait and mobility Category: Medical Plan: Continue to use cane. Medications: New donepezil 10 mg PO DAILY 90 tabs 1RF 90 days Coding Level of Care Code Est Pt Level 4 (65659) Diagnoses Alzheimer disease G30.9; F02.80 Multifactorial gait disorder R26.89
--- OUTSIDE RECORDS SUMMARY | 2025-01-02 09:18 | XMS_ITS | Patient Health Record ---
Author Organization [facility] Address [address] [facility] [place] [address] Care Team Providers Care Cargoman Name Role Phone Chloé NEAL, Bjorn Byers Primary Care Provider Unav ailable Black, Trupti Unavailable [phone] Allergies No Known Allergies Results Component Value Reference Range Notes HEMOGLOBIN A1C (GLYCOHEMOGLO BIN) Reviewed date:12/09/2024 11:19:17 AM Interpretation: Performing Lab: Notes/Report: HEMOGLOBIN A1C % (HH) 7.1 Reason For Referral No Information Medications Medication SIG (Take, Route, Frequency, Duration) Notes Start Date End Date Status Potassium Chloride Bonita ER 2 0 MEQ Oral; Duration: 90 Days Acti ve hydroCHLOROthiazide 25 MG Oral; Duration: 30 Active metFORMIN HCl Active Donepezil HCl 10 MG 1 tablet at bedtime Orally Once a day Active Extra Depth Orthopedic Shoes (1 Pair) with Customized Heat Molded Multidensity Innersoles (3 Pair) Dx: NIDDM/Polyneuropathy (E11.42), Hammertoe Foot Deformity (M20.41,M20.42), Preulcerative Skin Lesion(s) (L85.1); Duration: 365 days 12/09/2024 Active Immunizations Vaccine Route Administration Date Status Comme nts Influenza Unknown 12/24/2018 Administered Influenza Unknown 05/25/2020 Administered Influenza Unknown 12/23/2022 Administered Influenza Unknown 12/24/2023 Administered COVID-19 Moderna Vaccine Unknown 03/11/2021 Administered First Dose: 06/23/2020 Second Dose: 07/14/20 Social History Tobacco Use: Social History Observation Description Date Details (start date - stop date) Never Smoker NA - NA Tobacco use other than smoking: Question Answer Notes Are you an other tobacco user? No Tobacco Control (Standard) Question Answer Notes Tobacco use: Nonsmoker AUDIT-C (Standard) Question Answer Notes Did you have a drink containing alcohol in the p ast year? No Points 0 Interpretation Negative Problems Problem Type SNOMED Code ICD Code Onset Dates Problem Status W/U Status Risk Notes Problem Acquired hammer toe of right foot (6544988876986958 ) Other hammer toe(s) (acquired), right foot (M20.41) Active confirmed Problem Plantar wart (19597541) Plantar wart (B07.0) Active confirmed Problem Acquired hammer toe of left foot (0669737548648235 ) Other hammer toe(s) (acquired), left foot (M20.42) Active confirmed Problem Polyneuropathy due to type 2 diabetes mellitus (668047701) Type 2 diabetes mellitus with diabetic polyneuropathy (E11.42) Active confirmed Vital Signs Blood pressure diastolic 80 mm Hg 12/09/2024 Height 5 ft 2 in in 12/09/2024 Blood pressure systolic 110 mm Hg 12/09/2024 Weight 162 lbs 12/09/2024 BMI 29.63 kg/m2 12/09/2024 Procedures Procedure Date Ordered Date Performed Result Body Sit e 00419-NWHXGJF NAIL, 6 OR MORE 03/28/2024 N/A 20873-Luok Destruction, 1-14 03/28/2024 N/A 72141-IKEF SKIN LESIONS, OVER 4 03/28/2024 N/A 55453-GAPRALU NAIL, 6 OR MORE 12/09/2024 N/A 81559-Dkab Destruction, 1-14 12/09/2024 N/A 97238-CPEH SKIN LESIONS, OVER 4 12/09/2024 N/A Encounters Encounter Location Date Provider Diagnosis [facility] [place] [address] [place] [address] 03/28/2024 Trupti Black Other hammer toe(s) (acquired), right foot M20.41 ; Metatarsalgia of left foot M77.42 ; Plantar wart B07.0 ; Type 2 diabetes mellitus with diabetic polyneuropathy E11.42 ; Tinea unguium B35.1 ; Left foot pain M79.672 ; Other hammer toe(s) (acquired), left foot M20.42 ; PlantarFlexion of metatarsal of left foot M21.6X2 and Pain in left ankle and joints of left foot M25.[address] [address] 12/09/2024 Trupti Silva Other hammer toe(s) (acquired), right foot M20.41 ; Other hammer toe(s) (acquired), left foot M20.42 ; Plantar wart B07.0 ; Type 2 diabetes mellitus with diabetic polyneuropathy E11.42 ; Tinea unguium B35.1 and Left foot pain M79.[address] [address] 08/08/2024 Trupti Silva Assessments Encounter Date Diagnosis (ICD Code) Assessment Notes Treatment Notes Treatment Clinical Notes Section Notes 03/28/2024 Other hammer toe(s) (acquired), right foot (ICD-10 - M20.41) 03/28/2024 Metatarsalgia of left foot (ICD-10 - M77.42) 12/09/2024 Other hammer toe(s) (acquired), right foot (ICD-10 - M20.41) Patient Educated with: DIABETIC FOOT CARE INSTRUCTIONS. pdf (DIABETIC FOOT CARE INSTRUCTIONS. pdf) 12/09/2024 Other hammer toe(s) (acquired), left foot (ICD-10 - M20.42) 12/09/2024 Plantar wart (ICD-10 - B07.0) 03/28/2024 Plantar wart (ICD-10 - B07.0) 03/28/2024 Type 2 diabetes mellitus with diabetic polyneuropathy (ICD-10 - E11.42) 12/09/2024 Type 2 diabetes mellitus with diabetic polyneuropathy (ICD-10 - E11.42) 12/09/2024 Tinea unguium (ICD-10 - B35.1) 03/28/2024 Tinea unguium (ICD-10 - B35.1) 03/28/2024 Left foot pain (ICD-10 - M79.672) 12/09/2024 Left foot pain (ICD-10 - M79.672) 03/28/2024 Other hammer toe(s) (acquired), left foot (ICD-10 - M20.42) 03/28/2024 PlantarFlexion of metatarsal of left foot (ICD-10 - M21.6X2) 03/28/2024 Pain in left ankle and joints of left foot (ICD-10 - M25.572) Plan Of Treatment Pending Test Test Name Order Date 54697-SCHAQHV NAIL, 6 OR MORE 12/05/2019 76520-YAHSVYC NAIL, 6 OR MORE 03/12/2020 24718-UOJIYHR NAIL, 6 OR MORE 07/16/2020 00762-BLRKIFT NAIL, 6 OR MORE 11/16/2020 21581-RTDMBNX NAIL, 6 OR MORE 03/11/2021 81997-CYLUJCN NAIL, 6 OR MORE 07/01/2021 38625-LQZKNTS NAIL, 6 OR MORE 10/14/2021 35897-ZXVNGYR NAIL, 6 OR MORE 01/27/2022 31325-CNHDDHN NAIL, 6 OR MORE 06/02/2022 44732-VHRTPGY NAIL, 6 OR MORE 11/21/2022 41048-GUXVAZG NAIL, 6 OR MORE 03/27/2023 11825-UJLDCXW NAIL, 6 OR MORE 08/24/2023 28848-FIUKSMZ NAIL, 6 OR MORE 12/14/2023 35902-ZWLNDGI NAIL, 6 OR MORE 03/28/2024 29825-XHYMGMZ NAIL, 6 OR MORE 12/09/2024 69392-Fgyw Destruction, 1-14 12/09/2024 28314-Hbdr Destruction, 1-14 08/24/2023 07730-Wkvv Destruction, 1-14 12/14/2023 47878-Ciaq Destruction, 1-14 03/28/2024 04524-Zuypcaiv Plate 11/21/2022 22823-Qmqbsqav Plate Each Additional 97871- Debride <25 sq cm 05/02/2023 84798-BZGE SKIN LESIONS, OVER 4 08/24/19 24 72994-XUXN SKIN LESIONS, OVER 4 12/14/19 24 29963-QCCE SKIN LESIONS, OVER 4 11/22/19 23 67188-IMJV SKIN LESIONS, OVER 4 03/27/20 23 91029-RGBX SKIN LESIONS, OVER 4 03/28/20 24 82869-UURP SKIN LESIONS, OVER 4 12/10/19 25 06636-YDHG SKIN LESIONS, OVER 4 06/02/19 23 69641-JFCV SKIN LESIONS, OVER 4 01/28/20 22 35175-RHLJ SKIN LESIONS, OVER 4 10/15/19 22 36331-BZHV SKIN LESIONS, OVER 4 07/02/19 22 38730-JPMV SKIN LESIONS, OVER 4 03/11/20 21 23769-EFKW SKIN LESIONS, OVER 4 11/17/19 21 95973-DDGQ SKIN LESIONS, OVER 4 07/17/19 21 Next Appt Details Provider Name:Trupti Silva , 04/10/2025 11:00:00 AM, [address] [facility], [place], [address], Insurance Providers Payer Name Payer Address Payer Phone Subscriber Number Group Number Insured Name Patient Relationship to Insured Coverage Start Date Coverage End Date [employer] [address] [place] [address] [id number] Mallory Wilson Self - patient is the insured for Life [address] [place] [address] [phone] [id number] Mariya Wilson Spouse - patient is the spouse of the insured Medical (General) History Medical History History ICD Code Diabetic Measles Mumps UTI Surgical History Surgery Date(Month/Year) hysterectomy biopsy on right big toe 02/02/2023 cataract surgery 03/27/2024 Hospitalization History Reason Date(Month/Year) Rehab 02/04/2023- 3 [facility] Right great toe 01/30/2023 - 02/02/2023
--- OUTSIDE RECORDS SUMMARY | 2025-01-02 09:18 | XMS_ITS ---
Author Name [facility] Organization Unknown Care Team Organization Name Specialty Phone Email Start Date End Da te [facility] 12/11/2024 [facility] 03/01/2022 12/11/2023
--- OUTSIDE RECORDS SUMMARY | 2025-01-02 09:18 | XMS_ITS | Clinical Summary ---
Author Organization [facility] [address] [facility] Address [address] [place] [address] Phone Care Team Providers Care Color Buffer Name Role Phone Bjorn Luevano MD Primary Care Provider [phone] Allergies No known active allergies Medications donepeziL (ARICEPT) 10 mg tablet Take by mouth. Dr. Corona, Neurologist Active FREESTYLE LANCETS MISC test 1-2x day or as directed 2 Active FreeStyle Test test strip 2 Active blood-glucose meter kit Use to test blood sugar twice daily or as directed 2 Active metFORMIN (GLUCOPHAGE) 500 mg tablet Take 2 tablets (1,000 mg total) by mouth 2 (two) times a day. 360 tablet 1 5 Active rosuvastatin (CRESTOR) 5 mg tablet Take 1 tablet (5 mg total) by mouth 1 (one) time each day. 90 tablet 1 5 Active hydroCHLOROthia zide (HYDRODIURIL) 25 mg tablet TAKE 1/2 TABLET BY MOUTH ONCE DAILY 45 tablet 1 5 Active potassium chloride (KLOR-CON M20) 20 mEq CR tablet TAKE ONE TABLET BY MOUTH EVERY DAY. TABLET MAY BE SWALLOWED WHOLE (DO NOT CRUSH/CHEW/SUCK ON) OR BROKEN IN HALF AND EACH HALF SWALLOWED SEPARATELY OR DISSOLVED (WHOLE TABLET) IN ABOUT OUNCES OF WATER (ALLOW 2 MINUTES TO DISSOLVE, STIR WELL AND ADMINISTER IMMEDIATELY). 90 tablet 1 5 Active Active Problems Problem Noted Date Diagnosed Date Acute osteomyelitis of phala nx of right foot ([facility] V24, [facility] V28) 03/10/2023 Alzheimer disease ([facility] [place], [facility] V28) 07/2022 Onychomycosis 07/03/2015 Diabetes mellitus type 2 wit h neurological manifestations ([facility] V24, [facility] V28) 03/12/2014 Back pain 06/07/2013 Overview (03/29/2024): 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, left 10/06/2010 Female bladder prolapse 10/23/2009 Overview (03/29/2024): Cystocele : With vag wall prolaps, Followed with [facility] and urology, with pesery Pure hypercholesterolemia 01/25/2006 Essential hypertension, benign 05/03/2005 Morbid obesity ([facility] V24, [facility] V28) 2005 Encounters Date Type Department Care Team Description 11/26/2024 9:30 AM EDT Office Visit Adult Medicine [address] [address] Bjorn Luevano MD Diabetes mellitus type 2 with neurological manifestations ([facility] [place], [facility] V28) (Primary Dx); Weight loss; Weakness; Hypokalemia from Last 3 Months Immunizations Name Administration Dates Next Due H1N1 Inj Preservative Free 04/21/2009 Influenza trivalent, 0.5mL ( Fluad) 65yo and older 12/26/2023,03/16/2020,02/18/2019,01/31,01/05/2017,01/30/2016,01/01/2015 ,01/18/2005 Influenza trivalent, 0.5mL, preservative free (Fluarix; FluLaval; Fluzone) ages 6mo and older (Afluria) 3 years and older 01/24/2023,02/14/2014,02/01/2013,04/11,01/11/2011,01/26/2010,01/10/2009 ,01/24/2008,01/15/2007,01/24/2006 Pneumococcal conjugate 20 va lent (Prevnar 20, PCV 20) 2mo and older 12/26/2023 Pneumococcal polysaccharide 23 valent (Pneumovax 23) 2yo and older 03/28/2002 Td Tetanus diptheria (Tdvax) 7yo and older 01/24/2008 Surgical History Surgery Date Site/Laterality Comments OTHER SURGICAL HISTORY PROCEDURE: HISTORICAL TOTAL HYSTERECTOMY W/O BSO; COMMENT: fibroids Medical History Medical History Date Comments Morbid obesity ([facility] V24, [facility] V28) 05/03/2005 DX:Morbid obesity (HCC) Essential hypertension, benign 05/03/2005 D X:Essential hypertension, benign Pure hypercholesterolemia 01/25/2006 DX:Pur e hypercholesterolemia Cystocele 10/23/2009 DX:Cystocele Back pain 06/07/2013 DX:Back pain; CO MMENT: 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 ([facility] V24, [facility] V28) 03/12/2014 DX:Diabetes mellitus type 2 with neurological manifestations (HCC) Family History Medical History Relation Name Comments Breast cancer Neg Hx Social History Tobacco Use Types Packs/Day Years Used Date Smoking Tobacco: Former Cigarettes Q uit: 04/24/1987 Smokeless Tobacco: Never Tobacco Cessation:Counseling Given: Not Answered Alcohol Use Standard Drinks/Week Comments No 0 (1 standard drink = 0.6 oz pur e alcohol) Housing Instability Answer Date Recorde d Are you worried that in the next 2 months you may not have stable housing? No 09/01/2024 Food Access & Nutrition Answer Date Rec orded Do you have access to a vari ety of food including fruits and vegetables? Yes 09/01/2024 Access to Healthcare Answer Date Record ed Within the last 3 months, kiran everett many times did you visit the emergency department for your medical care? 0 09/01/2024 Health Literacy Answer Date Recorded How often do you need to hav e someone help you when you read instructions, pamphlets, or other written material from your doctor or pharmacy? Never 09/01/2024 Caregiver: How often do you need to have someone help you when you read instructions, pamphlets, or other written material from your doctor or pharmacy? Not on file 09/01/2024 Financial Risk Answer Date Recorded How hard is it for you to pa y for the very basics like food, housing, medical care, and air conditioning / heating? Not very hard 09/01/2024 Transportation Answer Date Recorded Has the lack of transportati on kept you from meetings, work, or from getting things needed for daily living? No Has the lack of transportati on kept you from medical appointments or from getting medications? No 09/01/2024 Social Isolation Answer Date Recorded How often do you feel lonely or isolated from th ose around you? Never 09/01/2024 Food Risk Answer Date Recorded Within the past 12 months we worried whether our food would run out before we got money to buy more. Never true 09/01/2024 Within the past 12 months th e food we bought just didn't last and we didn't have money to get more. Never true 09/01/2024 Dependent Care Answer Date Recorded Do you need help finding or paying for care for your loved ones. For example, child psychologist or elderly care for an older adult? No 09/01/2024 Education Answer Date Recorded Do you think completing more education or training, like finishing a GED, going to college, or learning a trade, would be helpful for you? No 09/01/2024 Employment and Income Answer Date Recor ded During the last four weeks, have you been actively looking for work? No 09/01/2024 Living Situation Answer Date Recorded What is your living situation? 0 09/01/2024 Comments Unknown Sex and Gender Information Value Date Recorded Sex Assigned at Not on file Legal Sex Female 6:18 AM EST Gender Identity Not on file Sexual Orientation Not on file Obstetrics History Last Filed Vital Signs Vital Sign Reading Time Taken Comments Blood Pressure 100/66 11/26/2024 9:27 AM EDT Pulse 78 09/02/2024 9:19 AM EDT Temperature 36.7 C (98.1 F) 11/26/2024 9:27 AM EDT Respiratory Rate 14 11/26/2024 9:27 AM EDT Oxygen Saturation 99% 09/02/2024 9:19 AM EDT Inhaled Oxygen Concentration - - Weight 71.2 kg (157 lb) 11/26/2024 9:27 AM EDT Height 160 cm (5' 3 ) 11/26/2024 9:27 AM EDT Body Mass Index 27.81 11/26/2024 9:27 AM EDT Plan of Treatment Upcoming Encounters Date Type Department Care Team (Late st Contact Info) Description 01/22/2025 9:40 AM EDT Appointment Radiology Department - [address] [phone] Health Maintenance Due Date Last Done Comments Diabetes: Annual Retina Eye Exam 1945 Zoster Vaccines (1 of 2) 1985 RSV Immunization Adult Patients (1 - 1-dose 75+ series) 2010 DTaP,Tdap,and Td Vaccines (2 - Td or Tdap) 01/23/2018 01/24/2008 Falls Risk Assessment 03/27/2022 Medicare Annual Wellness Visit 03/27/2022 Diabetes: Annual Foot Exam 12/13/2024 12/14/2023 COVID-19 Vaccine ( season) 2024 03/11/2021, 08/11/2020, 07/14/2020 Influenza Vaccine (#1) 2024 , 01/24/2023, 03/16/2020, Additional history exists Diabetes: Blood Sugar Control Test (HGBA1C) 05/29/2025 11/26/2024, 06/20/2024, 12/26/2023, Additional history exists Social Influencers of Health Screening 09/01/2025 09/01/2024 Hypertension/CHF/CAD Annual BMP Blood Test 09/02/2025 09/02/2024, 07/29/2024, 06/20/2024, Additional history exists Cholesterol Screening (Lipid Panel) 06/20/2029 06/20/2024, 08/22/2022 Osteoporosis Screening (Bone Density Screening) 04/30/2034 04/30/2024 Pneumococcal Vaccine: 50+ Years Completed 12/26/2023, 03/28/2002 Depression Screening Completed 09/01/2024, 05/30/19 24 HIB Vaccines Aged Out No longer eligi ble based on patient's age to complete this topic HPV Vaccines Aged Out No longer eligi ble based on patient's age to complete this topic Hepatitis A Vaccines Aged Out No long er eligible based on patient's age to complete this topic Hepatitis B Vaccines Aged Out No long er eligible based on patient's age to complete this topic IPV Vaccines Aged Out No longer eligi ble based on patient's age to complete this topic MMR Vaccines Aged Out No longer eligi ble based on patient's age to complete this topic Meningococcal ACWY Vaccine Aged Out N o longer eligible based on patient's age to complete this topic Meningococcal B Vaccine Aged Out No l onger eligible based on patient's age to complete this topic RSV Immunization Patients Under 20 months Aged Out No longer eligible based on patient's age to complete this topic Varicella Vaccines Aged Out No longer eligible based on patient's age to complete this topic Procedures Procedure Name Priority Date/Time Associated Diagnosis Comments HEMOGLOBIN A1C Routine 11/26/2024 11:00 AM EDT Diabetes mellitus type 2 with neurological manifestations ([facility] V24, [facility] V28) BASIC METABOLIC PANEL Routine 09/02/2024 10:28 AM EDT Hypokalemia LIPID PANEL WITH REFLEX TO DIRECT LDL Routine 06/20/2024 10:21 AM EST Diabetes mellitus type 2 with neurological manifestations ([facility] V24, [facility] V28) BD BONE DENSITY DXA AXIAL SKELETON Routine 04/30/2024 3:47 PM EST Encounter for follow-up examination after completed treatment for conditions other than malignant neoplasm Type 2 diabetes mellitus with other diabetic neurological complication ([facility] V24, [facility] V28) Encounter for immunization DIABETES FOOT EXAM Routine 12/14/2023 DEPRESSION SCREENING Routine 05/30/2023 from Last 3 Months or Most Recently Relevant to Health Maintenance Results * Hemoglobin A1c (11/26/2024 11:00 AM EDT) Hemoglobin A1C 5.5 <6.5 % LAB CHEMISTRY METHOD 11/26/2024 1:14 PM EDT [facility] Mean Bld Glu Estim. 111 mg/dL LAB CHEMISTRY METHOD 11/26/2024 1:14 PM EDT [facility] Blood Venous blood specimen / Unknown Venipuncture / Unknown 11/26/2024 11:00 AM EDT 11/26/2024 11:00 AM EDT us Bjorn Luevano MD LAB BLOOD ORDERABLES Final Resul t [facility] [address] [place] [address], [place] [phone] * (ABNORMAL) Basic metabolic panel (09/02/2024 10:28 AM EDT) Sodium 142 133 - 145 mmol/L LAB CHEMISTRY METHOD 09/02/2024 2:35 PM T [facility] Potassium 3.3(L) 3.5 - 5.5 mmol/L LAB CHEMISTRY METHOD 09/02/2024 2:35 PM [facility] Chloride 104 96 - 110 mmol/L LAB CHEMISTRY METHOD 09/02/2024 2:35 PM [facility] CO2 34(H) 21 - 32 mmol/L LAB CHEMISTRY METHOD 09/02/2024 2:35 PM [facility] Anion Gap 4 3 - 11 LAB CHEMISTRY METHOD 09/02/2024 2:35 PM [facility] Glucose 91 70 - 100 mg/dL LAB CHEMISTRY METHOD 09/02/2024 2:35 PM [facility] BUN 11 5 - 25 mg/dL LAB CHEMISTRY METHOD 09/02/2024 2:35 PM T [facility] Creatinine 0.60 0.50 - 1.10 mg/dL LAB CHEMISTRY METHOD 09/02/2024 2:35 PM [facility] eGFR 86 >=60 mL/min/1. 73m2 LAB CHEMISTRY METHOD 09/02/2024 2:35 PM [facility] Comment:Calculation based on the Chronic Kidney Disease Epidemiology Collaboration (CKD-EPI) equation refit without adjustment for race. BUN/Creatinine Ratio 18.3 LAB CHEMISTRY METHOD 09/02/2024 2:35 PM EDT [facility] Calcium 9.2 8.5 - 10.5 mg/dL LAB CHEMISTRY METHOD 09/02/2024 2:35 PM EDT [facility] Blood Venous blood specimen / Unknown Venipuncture / Unknown 09/02/2024 10:28 AM EDT 09/02/2024 10:28 AM EDT Bjorn Luevano MD LAB BLOOD ORDERABLES Final Resul t [facility] [address] [place] [address], [place] [phone] * Lipid panel with reflex to direct LDL (06/20/2024 10:21 AM EST) Cholesterol 193 0 - 200 mg/dL LAB CHEMISTRY METHOD 06/20/2024 2:44 PM EST [facility] Triglycerides 71 0 - 150 mg/dL LAB CHEMISTRY METHOD 06/20/2024 2:44 PM EST [facility] HDL 79 >=40 mg/dL LAB CHEMISTRY METHOD 06/20/2024 2:44 PM EST [facility] LDL Calculated 100 0 - 100 mg/dL LAB CHEMISTRY METHOD 06/20/2024 2:44 PM EST [facility] VLDL Cholesterol Axel 14.2 mg/dL LAB CHEMISTRY METHOD 06/20/2024 2:44 PM EST [facility] Non HDL Chol. (LDL+VLDL) 114 <145 mg/dL LAB CHEMISTRY METHOD 06/20/2024 2:44 PM [facility] Chol/HDL Ratio 2.4 0.0 - 4.4 LAB CHEMISTRY METHOD 06/20/2024 2:44 PM [facility] Blood Venous blood specimen / Unknown Venipuncture / Unknown 06/20/2024 10:21 AM EST 06/20/2024 10:21 AM EST us Bjorn Luevano MD LAB BLOOD ORDERABLES Final Resul t [facility] [address] [place] [address], [place] [phone] * BD Bone Density DXA Axial Skeleton (04/30/2024 3:47 PM EST) Anatomical Region Laterality Modality Wrist, Hip, L-spine Bone Densito metry 04/30/2024 8:08 PM EST Impressions 04/30/2024 8:10 PM EST Normal bone density Reference Information: The T-score is the number of standard deviations above or below the standard which is normal for young adults at their peak bone mineral density. The World Health Organization (WHO) interprets the T-scores as follows: At or above -1 SD Normal bone density Between -1 and -2.5 SD Osteopenia At or below -2.5 SD Osteoporosis -------- FINAL REPORT -------- Dictated By: Esthela Vincent Dictated Date: 04/30/2024 20:08 ET Assigned Physician: Esthela Vincent Reviewed and Electronically Signed By: Esthela Vincent Signed Date: 04/30/2024 20:10 ET Workstation ID: [id number] Transcribed By: Self Edit Transcribed Date: 04/30/2024 20:08 ET Narrative 04/30/2024 8:10 PM EST STUDY: DUAL ENERGY X-RAY ABSORPTIOMETRY / DXA REASON FOR EXAM: Female, 89 years old Encounter for examination following treatment at hospital; Diabetes mellitus type 2 with neurological manifestations (HCC); Need for prophylactic vaccination against Streptococcus pneumoniae (pneumococcus); Need for prophylactic vaccination and inoculation against influenza TECHNIQUE: Bone Mineral Density (BMD) measurements of the lumbar spine and left hip were obtained using [employer] W (S/N [id number]). COMPARISON: May 11, 2012 FINDINGS: L1-L4 BMD: 0.980 g/cm2 L1-L4 T score: -0.6. This corresponds to Normal bone density. This represents a -5.1* % decrease in bone density compared with prior exam from May 11, 2012. Left femoral neck BMD: 0.761 g/cm2 Left femoral neck T score: -0.8. This corresponds to Normal bone density. Left total hip BMD: 0.860 g/cm2 Left total hip T score: -0.7. This corresponds to Normal bone density. This represents a -14.5* % decrease in bone density compared with prior exam from May 11, 2012. * - Indicates a statistically significant change. Procedure Note Esthela Vincent MD - 04/30/2024 STUDY: DUAL ENERGY X-RAY ABSORPTIOMETRY / DXA REASON FOR EXAM: Female, 89 years old Encounter for examinationfollowing treatment at hospital; Diabetes mellitus type 2 withneurological manifestations (HCC); Need for prophylactic vaccinationagainst Streptococcus pneumoniae (pneumococcus); Need for prophylacticvaccination and inoculation against influenza TECHNIQUE: Bone Mineral Density (BMD) measurements of the lumbar spineand left hip were obtained using [employer] W (S/N [id number]). COMPARISON: May 11, 2012 FINDINGS: L1-L4 BMD: 0.980 g/cm2 L1-L4 T score: -0.6. This corresponds to Normal bone density. This represents a -5.1* % decrease in bone density compared with priorexam from May 11, 2012. Left femoral neck BMD: 0.761 g/cm2 Left femoral neck T score: -0.8. This corresponds to Normal bonedensity. Left total hip BMD: 0.860 g/cm2 Left total hip T score: -0.7. This corresponds to Normal bone density. This represents a -14.5* % decrease in bone density compared with priorexam from May 11, 2012. * - Indicates a statistically significant change. IMPRESSION: Normal bone density Reference Information: The T-score is the number of standard deviations above or below thestandard which is normal for young adults at their peak bone mineraldensity. The World Health Organization (WHO) interprets the T-scores asfollows: At or above -1 SD Normal bone density Between -1 and -2.5 SD Osteopenia At or below -2.5 SD Osteoporosis -------- FINAL REPORT -------- Dictated By: Esthela Vincent Dictated Date: 04/30/2024 20:08 ET Assigned Physician: Esthela Vincent Reviewed and Electronically Signed By: Esthela Vincent Signed Date: 04/30/2024 20:10 ET Workstation ID: [id number] Transcribed By: Self Edit Transcribed Date: 04/30/2024 20:08 ET Nori Geronimo CENTRAL OFFICE INSPECTOR IMG DXA PROCEDURES Final Res ult * Diabetes Foot Exam (12/14/2023) [facility] Diabetes: Annual Foot Exam Abstracted Historical Provider HEALTH MAINTENANCE Final Result * Depression Screening (05/30/2023) [facility] Depression Screening Abstracted Historical Provider HEALTH MAINTENANCE Final Result from Last 3 Months or Most Recently Relevant to Health Maintenance Insurance MEDICARE [facility] Advance Directives Documents on File Type Date Recorded 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
== END 2025-01-02 09:12 | disposition home or self-care (01) ==
LOC: HO.HSM 08:20
PROVIDERS: PCP Internal Medicine; Referring Provider Internal Medicine; Visit Provider Registered Nurse
DX: G30.9 Alzheimer's disease, unspecified (principal); F02.80 Dementia in other diseases classified elsewhere, unspecified severity, without behavioral disturbance, psychotic disturbance, mood disturbance, and anxiety; R26.89 Other abnormalities of gait and mobility
CPT/HCPCS: 99214

== ENCOUNTER → 2025-01-02 08:19 | Outpatient (BNVA) | payer MEDICARE, OTHER, SELFPAY | PROVIDERS: PCP Internal Medicine; Referring Provider Internal Medicine; Visit Provider Registered Nurse | DX: G30.9 Alzheimer's disease, unspecified (principal); F02.80 Dementia in other diseases classified elsewhere, unspecified severity, without behavioral disturbance, psychotic disturbance, mood disturbance, and anxiety; R26.89 Other abnormalities of gait and mobility | CPT/HCPCS: 99212 ==